=== PATIENT | male | born 1990 | race Caucasian/White ===

== ENCOUNTER 2022-04-01 12:00 | Emergency (ER) | payer OTHER ==
[2022-04-01] MEDS ORDERED: BACTRIM DS TAB1 EACH PO (16:20)
[2022-04-01] MEDS ORDERED: NORCO 5-325 TA1 EACH PO (16:20)
[2022-04-01] MEDS ORDERED: CEPHALEXIN500 MG PO (16:20)
== END 2022-04-01 17:04 | disposition home or self-care (01) ==
LOC: FER 12:00
DX: S61.313A Laceration without foreign body of left middle finger with damage to nail, initial encounter (principal); X58.XXXA Exposure to other specified factors, initial encounter; Y92.89 Other specified places as the place of occurrence of the external cause; Y99.0 Civilian activity done for income or pay
CPT/HCPCS: 73120; 90471; 90715